=== PATIENT | female | born 1940 | race Caucasian/White ===

== ENCOUNTER 2019-11-05 | Emergency (ER) | payer MEDICARE ==
[~2019-11-05] MED LIST: ADVAIR DISK1 INH; ADVAIR DISKUS IN; ASPIRIN EC81 MG PO; ATORVASTATIN CA80 MG PO; BRILINTA90 MG PO; CARVEDILOL3.125 MG PO; CELEBREX100 M1 PO; CELEBREX200 M1 PO; COMBIVENT; COMBIVENT RESPIMAT IN; DILAUDID2 MG PO; DIOVAN HC1 PO; DIOVAN80 MG PO; DOXYCYCL HYC100 MG PO; FLEXERIL PO; LASIX40 MG PO; MEDDOSEPAK PO; METFORMIN500 M1 PO; MOTRIN400 MG PO; POT CHLORIDE10 ME5 PO; PROTONIX40 M2 PO; TRAMADOL HCL50 MG PO
[2019-11-05 08:35] LABS: HEMATOCRIT 37.4 % (37.0-47.0); HEMOGLOBIN 11.8 g/dl (12.0-16.0); IMMATURE GRANULOCYTES 0.3 % (0.0-5.0); MEAN CELL VOLUME 86.4 fL CALC (80.0-100.0); MEAN CORPUSCULAR HGB 27.3 pG CALC (26.0-32.0); MEAN CORPUSCULAR HGB CONC 31.6 g/L CALC (32.0-36.0); NEUT# 5.47 thou/uL (2.00-7.15); RED BLOOD COUNT 4.33 mill/uL (4.20-5.60); RED CELL DISTRI WIDTH 13.9 % (11.5-15.5)
[2019-11-05 08:45] LABS: ALKALINE PHOSPHATASE 100 u/l (38-126); ANION GAP 13 (6-22 (CALC)); BILIRUBIN, TOTAL 0.8 mg/dL (0.0-1.4); BUN 29 mg/dL (8-23); BUN/CREATININE RATIO 29 (12-20 (CALC)); CARBON DIOXIDE 25 mmol/l (22-30); CHLORIDE 106 mmol/l (95-108); GFR 53 ML/MIN (>=60 (CALC)); GFR FOR AFR.AMER. > 60 ML/MIN (>=60 (CALC)); LIPASE 119 u/l (23-300); POTASSIUM 4.5 mmol/l (3.5-5.1); SGOT/AST 37 u/l (9-36); SODIUM 139 mmol/l (137-146); TOTAL PROTEIN 7.9 g/dL (6.3-8.2)
[2019-11-05 09:22] LABS: PROTHROMBIN TIME 10.1 SECONDS (9.0-12.5)
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
== END 2019-11-05 10:50 | disposition short-term general hospital (02) ==
PROVIDERS: Family Medicine
PROC: 02HV33Z Insertion of Infusion Device into Superior Vena Cava, Percutaneous Approach (ICD-10-PCS; principal; 2019-11-05)
DX: T59.811A Toxic effect of smoke, accidental (unintentional), initial encounter (principal); J70.5 Respiratory conditions due to smoke inhalation; J96.00 Acute respiratory failure, unspecified whether with hypoxia or hypercapnia; J45.909 Unspecified asthma, uncomplicated; E11.9 Type 2 diabetes mellitus without complications; I10 Essential (primary) hypertension; Y92.009 Unspecified place in unspecified non-institutional (private) residence as the place of occurrence of the external cause; Z79.84 Long term (current) use of oral hypoglycemic drugs

== ENCOUNTER 2020-08-07 17:53 | Observation (INO) | payer MEDICARE ==
[~2020-08-07] VITALS: Ht 165.1 cm; Wt 82.1 kg
[~2020-08-07 17:53] MED LIST changes: +ASPIRIN 81 LOW81 MG; +CARVEDILOL6.25 MG PO; +LIPITOR80 M1 PO; +LOSARTAN POTASS50 MG PO; +METFORMIN500 M2 PO
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
--- NOTE | 2020-08-07 18:40 | NUR ---
PT SLOW TO RESPOND, AOX3 TO QUESTIONS, BILATERAL WEAKNESS IN ALL EXTREMITEIS, PT DOES NOT ATTEMPT TO FOLLOW NIH COMMANDS.
[2020-08-07 18:44] LABS: HEMATOCRIT 33.7 % (37.0-47.0); HEMOGLOBIN 10.3 g/dl (12.0-16.0); IMMATURE GRANULOCYTES 0.3 % (0.0-5.0); MEAN CELL VOLUME 85.1 fL CALC (80.0-100.0); MEAN CORPUSCULAR HGB CONC 30.6 g/dL CAL (32.0-36.0); NEUT# 6.78 thou/uL (2.00-7.15); RED BLOOD COUNT 3.96 mill/uL (4.20-5.60); RED CELL DISTRI WIDTH 13.6 % (11.5-15.5)
[2020-08-07 19:03] LABS: PROTHROMBIN TIME 9.9 SECONDS (9.0-12.5)
[2020-08-07 19:04] LABS: ALBUMIN 3.8 g/dL (3.2-5.0); BILIRUBIN, TOTAL 0.5 mg/dL (0.0-1.4); CREATININE 1.1 mg/dL (0.5-1.0); POTASSIUM 4.6 mmol/l (3.5-5.1); TOTAL PROTEIN 6.9 g/dL (6.3-8.2)
[2020-08-07 19:16] LABS: MYOGLOBIN 39 ng/mL (0 - 62)
--- NOTE | 2020-08-07 23:30 | NUR ---
PT ADMITING HOLDING IN ER14
--- NOTE | 2020-08-08 00:30 | NUR ---
PT RESTING QUIETLY ON STRETCHER, CALLED FOR HOSPITAL BED.
--- NOTE | 2020-08-08 01:30 | NUR ---
SWITCHED PT TO HOSPITAL BED. PT HAS TROUBLE MOVING AND GETTING OUT OF BED TO COMMODE. PT HAS ARTHRITIS AND PER SON WILLIAM PT TAKES A LOT OF ADVIL FOR IT.
--- NOTE | 2020-08-08 02:30 | NUR ---
PT CALLED ASKING FOR SLEEPING PILL
--- NOTE | 2020-08-08 02:30 | NUR ---
PT CALLED ASKING FOR SLEEPING PILL. INFORMED PT IT'S TOO LATE. AND WE ARE DOING NEURO CHECKS.
--- NOTE | 2020-08-08 03:50 | NUR ---
NO CHANGE IN NIHSS. PT STATES SHE IS COLD. ANOTHER BLANKET APPLIED.
--- NOTE | 2020-08-08 05:22 | NUR ---
PT RESTING QUIETLY IN BED. CALL SELLERS IN REACH.
--- NOTE | 2020-08-08 06:04 | NUR ---
Patient is screened fro rehab intervention and she would benefit from PT/OT and ST consults if medical agrees
--- NOTE | 2020-08-08 06:58 | NUR ---
REPORT GIVEN TO QUINN MARTINEZ
--- NOTE | 2020-08-08 07:19 | NUR ---
PT ARRIVED TO MS VIA STRETCHER. REPORT REC FROM ANDREY BALL. A&O X3. NO DISTRESS NOTED. PT C/O OF RT SHOULDER PAIN FROM HER "ARTHRITIS" DENIES ANY INJURY TO SHOULDER. ALSO C/O OF DIZZINESS. STATES WEAKNESS HAS BEEN GOING ON FOR A "COUPLE" OF DAYS. RT HAND CENTRIFUGAL WAX MOLDER SLIGHTLY WEAKNER COMPARED TO THE LT HAND. PARTS SALES MANAGER PLACED. TWO IV SITES #20 RAC AND #22 LAC BOTH PATENT AND FLUSH WITH EASE. ASSESSMENT COMPLETED. DISCUSSED POC. CALL LIGHT IN REACH. CONTINUE TO MONITOR.
[2020-08-08 07:28] VITALS: BP 180/69
--- NOTE | 2020-08-08 07:40 | NUR ---
PT TAKEN TO MRI VIA STRETCHER IN STABLE CONDITION ACCOMPANIED BY GIOVANI BALA AND DANITA EVANS.
--- NOTE | 2020-08-08 08:25 | NUR ---
PT ARRIVED BACK FROM MRI VIA STRETCHER IN STABLE CONDITION. SCRAP PICKER PLACED BACK ON PT. PT ASSISTED TO BSC WITH THE HELP OF DANITA EVANS. SLOW BUT STEADY GAIT OBSERVED. CALL LIGHT IN REACH. CONTINUE TO MONITOR.
[2020-08-08 09:26] LABS: HEMATOCRIT 36.5 % (37.0-47.0); HEMOGLOBIN 10.9 g/dl (12.0-16.0); IMMATURE GRANULOCYTES 0.2 % (0.0-5.0); MEAN CELL VOLUME 86.7 fL CALC (80.0-100.0); MEAN CORPUSCULAR HGB 25.9 pG CALC (26.0-32.0); MEAN CORPUSCULAR HGB CONC 29.9 g/dL CAL (32.0-36.0); NEUT# 6.13 thou/uL (2.00-7.15); RED BLOOD COUNT 4.21 mill/uL (4.20-5.60); RED CELL DISTRI WIDTH 13.7 % (11.5-15.5)
[2020-08-08 10:12] LABS: ALBUMIN 3.5 g/dL (3.2-5.0); ALKALINE PHOSPHATASE 104 u/l (38-126); BILIRUBIN, TOTAL 0.7 mg/dL (0.0-1.4); BUN 21 mg/dL (8-23); BUN/CREATININE RATIO 23 (12-20 (CALC)); CARBON DIOXIDE 25 mmol/l (22-30); CHLORIDE 108 mmol/l (95-108); CREATININE 0.9 mg/dL (0.5-1.0); GFR 60 ML/MIN (>=60 (CALC)); GFR FOR AFR.AMER. > 60 ML/MIN (>=60 (CALC)); SGOT/AST 28 u/l (9-36); SODIUM 140 mmol/l (137-146); TOTAL PROTEIN 6.6 g/dL (6.3-8.2)
[2020-08-08 10:20] LABS: ANION GAP 12 (6-22 (CALC)); POTASSIUM 4.6 mmol/l (3.5-5.1)
[2020-08-08 10:40] VITALS: BP 187/77
--- NOTE | 2020-08-08 12:03 | NUR ---
PT VOICES STILL FEELING "DIZZINESS" FIRST DOSE OF ANTIVERT GIVEN. EDUCATION PROVIDED ON FIRST DOSE. PT VERBALIZED UNDERSTANDING. PT ENCOURAGED TO PRESS CALL LIGHT IF SHE NEEDED TO GET OUT OF BED. PT INDICATES UNDERSTANDING. CALL LIGHT IN REACH. CONTINUE TO MONITOR.
[2020-08-08 13:12] LABS: URINE BILIRUBIN - DIPSTICK NEGATIVE (NEGATIVE); URINE BLOOD DIPSTICK NEGATIVE (NEGATIVE); URINE COLOR YELLOW; URINE GLUCOSE - DIPSTICK NEGATIVE (NEGATIVE); URINE KETONE NEGATIVE (NEGATIVE); URINE LEUK ESTERASE NEGATIVE (NEGATIVE); URINE NITRITE - DIPSTICK NEGATIVE (Negative); URINE PH 6.5 (4.5-8.0); URINE PROTEIN - DIPSTICK NEGATIVE (NEG-TRACE); URINE SPECIFIC GRAVITY 1.015; URINE UROBILINOGEN - DIPSTICK 0.2 E.U./dL (0.2)
[2020-08-08] MEDS ORDERED: MECLIZINE25 MG PO (13:56)
--- NOTE | 2020-08-08 14:14 | NUR ---
FIRST DOSE OF NORVASC GIVEN TO STABALIZE BP. PT EDUCATED ON MEDICATION. PT VERBALIZED UNDERSTANDING. BP TO BE RE-EVALUATED. CALL LIGHT IN REACH. CONTINUE TO MONITOR.
[2020-08-08 14:55] VITALS: BP 161/59
--- NOTE | 2020-08-08 16:30 | NUR ---
PT WAS SEEN THIS PM PRIOR TO DC OR PLACEMENT. IT WAS DETERMINED THAT PT WILL BENEFIT FROM THE USE OF ROLLING WALKER FOR SAFE AMBULATION. ALSO COORDINATED WITH ASSIGNED NURSE RE RECOMMENDATION OF HOME HEALTH PHYS THERAPY UPON DC. [facility]: 15 POINTS
[2020-08-08 16:53] VITALS: BP 145/65
--- NOTE | 2020-08-08 16:54 | NUR ---
BP UPON EVALUATION 145/65 WITH HR AT 60 BPM. DAY VILLASENOR NOTIFIED. PT TO BE D/C AFTER DINNER WHEN PTS RIDE ARRIVES. CALL LIGHT IN REACH. CONTINUE TO MONITOR.
--- NOTE | 2020-08-08 18:41 | NUR ---
Discharge instructions given. Patient verbalizes understanding of same. Discharged in stable condition via Wheelchair to Home with staff. Prescription given, pt instructed/encouraged to return if symtpoms worsen. All belongings sent with pt.
== END 2020-08-08 18:41 | disposition home health service (06) ==
LOC: ED 17:53 → ED-I 20:15 → ED 20:22 → MS2 20:23 → ED-I 20:23 → MS2 08-08 04:40 → ED-I 08-08 05:11 → MS2 08-08 07:10
PROVIDERS: Emergency Medicine; Nurse Practitioner; Nurse Practitioner Family; ADMIT Internal Medicine; ATTEND Internal Medicine
DX: G45.9 Transient cerebral ischemic attack, unspecified (principal); R42 Dizziness and giddiness; I10 Essential (primary) hypertension; I25.10 Atherosclerotic heart disease of native coronary artery without angina pectoris; E11.9 Type 2 diabetes mellitus without complications; E78.5 Hyperlipidemia, unspecified; R00.1 Bradycardia, unspecified; K21.9 Gastro-esophageal reflux disease without esophagitis; J45.909 Unspecified asthma, uncomplicated; M19.90 Unspecified osteoarthritis, unspecified site; Z79.84 Long term (current) use of oral hypoglycemic drugs; Z95.5 Presence of coronary angioplasty implant and graft; Z20.828 Contact with and (suspected) exposure to other viral communicable diseases
CPT/HCPCS: Q9967